=== PATIENT | female | born 1995 | race Caucasian/White ===

== ENCOUNTER 2020-12-01 20:52 | Emergency (ER) | payer OTHER ==
[2020-12-01 21:07] VITALS: BP 126/88; PULSE 84; RESP 20; TEMP 98.5
[2020-12-01] MEDS ORDERED: KETOROLAC 15 MG/ML 1 ML VIAL IM STA (21:42)
[2020-12-01] MEDS ORDERED: LIDOCAINE 5% PATCH TOPICAL STA (21:42)
[2020-12-01] MEDS ORDERED: CYCLOBENZAPRINE 10 MG TAB PO STA (21:43)
--- NOTE | 2020-12-01 21:43 | ED ---
Back Pain HPI - General Chief Complaint: Back Pain/Injury Stated Complaint: Back Pain Time Seen by Provider: 12/01/20 21:12 Source: patient Limitations: no limitations - History of Present Illness Initial Comments: 25-year-old female with history of chronic back pain and sciatica presents emergency Department chief complaint of back pain. patient is coming in for [facility] where she is undergoing rehab. Patient was initially dismissive of any questions and was yelling on the phone with her boyfriend. patient reports this is benign well for the past few days. Patient states she is currently at [facility]. she states this feels very typical back pain. Denies taking medications for the symptoms. Denies saddle anesthesia, urinary retention with orthopedic incontinence or bowel incontinence. - Related Data Home Medications Medication Instructions Recorded Confirmed Acetaminophen Tab [Tylenol] 650 mg PO Q4H PRN 12/01/20 12/01/20 Calcium/Magnesium(Unknown) 1 tab PO TID 12/01/20 12/01/20 Chlorpheniramine Maleate 4 mg PO Q4H PRN 12/01/20 12/01/20 [Chlor-Trimeton] Citalopram Hydrobromide [CeleXA] 10 mg PO DAILY@0615 12/01/20 12/01/20 Ibuprofen [Motrin] 600 mg PO Q6H PRN 12/01/20 12/01/20 Multivitamins, Thera [Multivitamin 1 tab PO DAILY@0600 12/01/20 12/01/20 (formulary)] Thiamine [Vitamin B-1] 100 mg PO DAILY@0600 12/01/20 12/01/20 Zofran 2mg/Ml 4 mg IM Q6H PRN 12/01/20 12/01/20 busPIRone HCl [Buspar] 10 mg PO TID PRN 12/01/20 12/01/20 lamoTRIgine [LaMICtal] 25 mg PO DAILY@0615 12/01/20 12/01/20 ondansetron HCL [Zofran] 8 mg PO Q6H PRN 12/01/20 12/01/20 Allergies Allergy/AdvReac Type Severity Reaction Status Date / Time No Known Allergies Allergy Verified 12/01/20 21:26 Review of Systems ROS Statement: Those systems with pertinent positive or pertinent negative responses have been documented in the HPI. ROS Other: All systems not noted in ROS Statement are negative. Past Medical History Additional Past Medical History / Comment(s): sciatica History of Any Multi-Drug Resistant Organisms: None Reported Past Surgical History: Tonsillectomy Past Psychological History: No Psychological Hx Reported Smoking Status: Current every day smoker Past Alcohol Use History: Occasional Past Drug Use History: Cocaine, Heroin, Methamphetamine General Exam Limitations: no limitations General appearance: alert, in no apparent distress Head exam: Present: atraumatic, normocephalic, normal inspection Eye exam: Present: normal appearance, PERRL, EOMI Pupils: Present: normal accommodation ENT exam: Present: normal exam, normal oropharynx, mucous membranes moist Neck exam: Present: normal inspection, full ROM. Absent: tenderness Respiratory exam: Present: normal lung sounds bilaterally. Absent: respiratory distress Cardiovascular Exam: Present: regular rate, normal rhythm, normal heart sounds GI/Abdominal exam: Present: soft. Absent: distended, tenderness Extremities exam: Present: normal inspection, full ROM, normal capillary refill. Absent: tenderness, pedal edema, joint swelling Back exam: Present: normal inspection, full ROM, tenderness, paraspinal tenderness (left-sided paraspinal tenderness.), other (left leg raise test positive.). Absent: vertebral tenderness Neurological exam: Present: alert, oriented X3, normal gait Psychiatric exam: Present: normal affect, normal mood Skin exam: Present: warm, dry, intact, normal color Course Vital Signs 12/01/20 21:04 Temperature 98.5 F Pulse Rate 84 Respiratory 20 Rate Blood Pressure 126/88 O2 Sat by Pulse 95 Oximetry Medical Decision Making - Medical Decision Making 25-year-old female with history of chronic back pain and sciatica presents emergency Department with a chief complaint of back pain. On initial evaluat ion, patient is agitated, yelling at the staff and yelling over the phone with her boyfriend. Once the patient calmed down, spoke with her and did my evaluation. No concern for cauda equina. Patient not requesting anything narcotic. Give the patient Toradol, Lidoderm patch and Flexeril. At reevaluation, she reports improvement in symptoms. She will be discharged. Case discussed with physician. Disposition Clinical Impression: Mechanical back pain, Strain of lumbar region Disposition: HOME SELF-CARE Condition: Stable Instructions (If sedation given, give patient instructions): Acute Low Back Pain (ED) Additional Instructions: follow-up with an beauty specialist. Alternate between Tylenol and Motrin for pain. Is patient prescribed a controlled substance at d/c from ED?: No Referrals: Nonstaff,Physician [Primary Care Provider] - 1-2 days Janet Lugo DO [Doctor of Osteopathic Medicine] - 1-2 days Time of Disposition: 21:43
== END 2020-12-01 22:05 | disposition home or self-care (01) ==
LOC: EC 20:52
DX: S39.012A Strain of muscle, fascia and tendon of lower back, initial encounter (principal); F17.200 Nicotine dependence, unspecified, uncomplicated; X58.XXXA Exposure to other specified factors, initial encounter
CPT/HCPCS: 99283; 96372; J1885

== ENCOUNTER → 2021-07-22 | Outpatient (CLI) | payer OTHER ==
[2021-07-22 22:07] LABS: African American GFR (CKD) 137.6 (60.0-200.0); Albumin 4.6 g/dL (3.80-4.90); Albumin/Globulin Ratio 1.59 (1.60-3.17); Anion Gap 10.4 mmol/L (4.00-12.00); Calcium 9.3 mg/dL (8.7-10.3); Carbon Dioxide 23.6 mmol/L (21.6-31.8); Globulin 2.9 g/dL (1.6-3.3); Non-African American GFR(CKD) 118.7 (60.0-200.0); Potassium 3.8 mmol/L (3.5-5.5); Total Bilirubin 1.9 mg/dL (0.2-1.2); Total Protein 7.5 g/dL (6.2-8.2)
== END | disposition home or self-care (01) ==
LOC: LABWHC1 12:06
PROVIDERS: ATTEND Family Medicine
DX: F11.20 Opioid dependence, uncomplicated (principal)
CPT/HCPCS: 36415; 80053